=== PATIENT | male | born 1950 | race Caucasian/White ===

== ENCOUNTER 2023-04-19 09:13 | Emergency (ER) | payer OTHER, MEDICARE ==
[2023-04-19 09:16] VITALS: BP 144/79; PULSE 95; RESP 18; TEMP 98; BMI 30.1
== END 2023-04-19 10:26 | disposition home or self-care (01) ==
LOC: JER 09:13 → JERFT 09:13
DX: M25.422 Effusion, left elbow (principal); M70.32 Other bursitis of elbow, left elbow
CPT/HCPCS: 73070-TC-LT-FY; 99283-25